=== PATIENT | male | born 1970 | race Caucasian/White ===

== ENCOUNTER 2016-11-24 11:14 | Emergency (ER) | payer OTHER ==
[2016-11-24] MEDS ORDERED: DIPHENHYDRAMINE HCL 50 MG/ML VIAL IV ONE (11:23)
[2016-11-24] MEDS ORDERED: FAMOTIDINE INJ/PF 20 MG/2 ML SDV IV ONE (11:23)
--- NOTE | 2016-11-24 12:23 | ER Document Report ---
ED General - General Stated Complaint: ALLERGIC REACTION Time Seen by Provider: 11/24/16 11:20 Notes: 6-year-old male presents to the emergency room today stating he has difficulty swallowing swelling to his posterior pharynx. He was seen by his PMD who provided him with Solu-Medrol and oral Benadryl and sent him to the emergency room. TRAVEL OUTSIDE OF THE [place] IN LAST 30 DAYS: No - Related Data Allergies/Adverse Reactions: No Known Allergies Allergy (Unverified 11/24/16 11:42) Past Medical History - Social History Smoking Status: Current Every Day Smoker Chew tobacco use (# tins/day): No Frequency of alcohol use: None Drug Abuse: None Family History: None - Past Medical History Cardiac Medical History: Reports: Hx Hypertension Endocrine Medical History: Reports: Hx Diabetes Mellitus Type 2 Past Surgical History: Reports: Hx Abdominal Surgery, Hx Orthopedic Surgery Review of Systems - Review of Systems Constitutional: No symptoms reported EENT: No symptoms reported Cardiovascular: No symptoms reported Respiratory: No symptoms reported Gastrointestinal: No symptoms reported Genitourinary: No symptoms reported Male Genitourinary: No symptoms reported Musculoskeletal: No symptoms reported Skin: No symptoms reported Hematologic/Lymphatic: No symptoms reported Neurological/Psychological: No symptoms reported Physical Exam - Vital signs Vitals: Temp Resp BP Pulse Ox 99.2 F 16 144/65 H 96 11/24/16 11:17 11/24/16 11:17 11/24/16 11:17 11/24/16 11:17 Interpretation: Normal - General General appearance: Appears well, Alert - HEENT Head: Normocephalic, Atraumatic Eyes: Normal Pupils: PERRL Pharynx: Uvular edema - Respiratory Respiratory status: No respiratory distress Chest status: Nontender Breath sounds: Normal Chest palpation: Normal - Cardiovascular Rhythm: Regular Heart sounds: Normal auscultation Murmur: No - Abdominal Inspection: Normal Distension: No distension Bowel sounds: Normal Tenderness: Nontender Organomegaly: No organomegaly - Back Back: Normal, Nontender - Extremities General upper extremity: Normal inspection, Nontender, Normal color, Normal ROM , Normal temperature General lower extremity: Normal inspection, Nontender, Normal color, Normal ROM , Normal temperature, Normal weight bearing. No: Chris's sign - Neurological Neuro grossly intact: Yes Cognition: Normal Orientation: AAOx4 [place] Coma Scale Eye Opening: Spontaneous Sophie Coma Scale Verbal: Oriented Sophie Coma Scale Motor: Obeys Commands Sophie Coma Scale Total: 15 Speech: Normal Motor strength normal: LUE, RUE, LLE, RLE Sensory: Normal - Psychological Associated symptoms: Normal affect, Normal mood - Skin Skin Temperature: Warm Skin Moisture: Dry Skin Color: Normal Course - Re-evaluation Re-evalutation: 11/24/16 12:18 Prior to arrival the patient had been provided 125 mg of Solu-Medrol IM and 50 mg of Benadryl p.o. Here in the department we gave him Pepcid as well as IV Benadryl he also received epinephrine prior to arrival. Patient was already starting to feel better he did look like he had slight edema to the uvula upon my evaluation initially. Which is subsequently resolved patient takes p.o. challenge is in the room with no discomfort states it is still slightly sore but is completely patent he feels much better he was monitored for approximately an hour and a half. Patient was advised to refrain from taking lisinopril. He was provided with a prescription for prednisone Benadryl and Pepcid for 5 days. Subsequently he mentioned that he was experiencing some muscle spasm in the left lateral aspect of his neck with no injury no midline step-off no crepitus. Possible upon movement with palpable spasm to that area. - Vital Signs Vital signs: Temp Pulse Resp BP Pulse Ox 99.2 F 24 H 123/58 L 94 11/24/16 11:17 11/24/16 12:01 11/24/16 12:01 11/24/16 12:01 Discharge - Discharge Clinical Impression: Torticollis, acute Acute allergic reaction Qualifiers: Encounter type: initial encounter Qualified Code(s): T78.40XA - Allergy, unspecified, initial encounter Condition: Good Disposition: HOME, SELF-CARE Additional Instructions: Acute Allergic Reaction Your symptoms are due to an allergic reaction. Allergy can cause hives, swelling of the hands, feet, and face, hoarseness, and difficulty swallowing or breathing. It may be due to exposure to medication, animal dander, foods, infection, or insect bites. Medication is a common cause, even when prior use of this same medication caused no problems. Acute treatment may include adrenalin and antihistamines. Usually, the specific allergic agent can't be identified unless repeated episodes occur. Home treatment includes the following: (1) Stop any suspicious medications. This will be discussed with you. (2) Oral antihistamines for the next four to five days. Example, diphenhydramine (Benadryl) every four hours. (3) You may also use cimetidine (Tagamet), ranitidine (Zantac), or famotidine (Pepcid) every four hours if diphenhydramine is not controlling itching and hives. (4) Avoid aspirin until the hives completely disappear. (5) Avoid hot bahs or showers until the hives are completely gone. Call the doctor if faintness, difficulty swallowing, tightness in the chest, or wheezing occurs.Torticollis You have torticollis, often called "wry neck." This is due to spasm of neck muscles -- locking the neck into a crooked position. Many different problems can lead to torticollis, such as a minor injury, sleeping with tension on the neck, or inflammation in the glands of the neck. Torticollis is usually treated with heat to relax the neck muscles, but the physician may recommend cold packs if a minor injury is suspected as the cause. Muscle relaxing and antiinflammatory medicine are often prescribed. You may need a neck collar to support your head. Improvement is usually rapid. Usually, the neck can be moved fully within two days, although some pain may persist for a few weeks. Call the doctor at once if you worsen, or if you develop high fever, severe headache, numbness or weakness, or other alarming symptoms. Follow up with PMD in 2-3 days. Do not take lisinopril. Speak with PMD for new hypertension management medication. Follow-up with private doctor in 1 to 2 days for final radiology readings please return to the emergency room for any change worsening condition. Follow up with private M.D. for all other routine health care needs. Prescriptions: Tramadol HCl [Ultram 50 mg Tablet] 50 mg PO Q4HP PRN #60 tab PRN Reason: Diphenhydramine HCl [Benadryl 25 mg Capsule] 25 mg PO Q6 PRN #25 capsule PRN Reason: Famotidine [Pepcid 20 mg Tablet] 20 mg PO DAILY #10 tablet Methocarbamol [Robaxin 750 mg Tablet] 750 mg PO Q4 #40 tablet Prednisone [Deltasone 20 mg Tablet] 3 tab PO DAILY 5 Days
[2016-11-24] MEDS ORDERED: HYDROCODONE/ACETAMINOPHEN 5-325 MG TABLET PO ONE (12:29)
[2016-11-24 12:50] VITALS: BP 119/52
== END 2016-11-24 12:47 | disposition home or self-care (01) ==
LOC: ER 11:14
DX: T78.40XA Allergy, unspecified, initial encounter (principal); R13.10 Dysphagia, unspecified; X58.XXXA Exposure to other specified factors, initial encounter; M43.6 Torticollis; F17.200 Nicotine dependence, unspecified, uncomplicated; I10 Essential (primary) hypertension; E11.9 Type 2 diabetes mellitus without complications
CPT/HCPCS: 99282; 96374; 96375; J1200; S0028

== ENCOUNTER 2017-01-10 20:15 | Emergency (ER) | payer OTHER ==
--- NOTE | 2017-01-10 22:55 | ER Document Report ---
ED ENT - General Chief Complaint: Sore Throat Stated Complaint: SORE THROAT Time Seen by Provider: 01/10/17 22:54 Notes: Patient is a 46-year-old male, past medical history diabetes, presents with 4 days of a sore throat and nasal congestion. He is able to drink and swallow his secretions. He denies fevers, neck stiffness, cough, nausea or vomiting. TRAVEL OUTSIDE OF THE [place] IN LAST 30 DAYS: No - Related Data Allergies/Adverse Reactions: No Known Allergies Allergy (Unverified 11/24/16 11:42) Past Medical History - General Information source: Patient - Social History Smoking Status: Unknown if Ever Smoked Family History: None Patient has suicidal ideation: No Patient has homicidal ideation: No - Past Medical History Cardiac Medical History: Reports: Hx Hypertension Endocrine Medical History: Reports: Hx Diabetes Mellitus Type 2 Renal/ Medical History: Denies: Hx Peritoneal Dialysis Past Surgical History: Reports: Hx Abdominal Surgery, Hx Orthopedic Surgery Review of Systems - Review of Systems Notes: REVIEW OF SYSTEMS: CONSTITUTIONAL: -fevers, -chills EENT: +sore throat, -eye pain, -difficulty swallowing, -nasal congestion CARDIOVASCULAR: -chest pain, -syncope. RESPIRATORY: -cough, -SOB GASTROINTESTINAL: -abdominal pain, - nausea, -vomiting, -diarrhea GENITOURINARY: -dysuria, -hematuria MUSCULOSKELETAL: -back pain, -neck pain SKIN: -rash or skin lesions. HEMATOLOGIC: -easy bruising or bleeding. LYMPHATIC: +swollen, enlarged glands. NEUROLOGICAL: -altered mental status or loss of consciousness, -headache, - neurologic symptoms PSYCHIATRIC: -anxiety, -depression. ALL OTHER SYSTEMS REVIEWED AND NEGATIVE. Physical Exam - Vital signs Vitals: Temp Pulse Resp BP Pulse Ox 99.3 F 97 20 150/91 H 97 01/10/17 20:46 01/10/17 20:46 01/10/17 20:46 01/10/17 20:46 01/10/17 20:46 - Notes Notes: PHYSICAL EXAMINATION: GENERAL: Well-appearing, well-nourished and in no acute distress. HEAD: Atraumatic, normocephalic. EYES: Pupils equal round and reactive to light, extraocular movements intact, sclera anicteric, conjunctiva are normal. ENT: B/L posterior pharynx erythema, no exudates, symmetrical, cobblestoning, nares patent. Moist mucous membranes. NECK: Normal range of motion, supple with anterior cervical lymphadenopathy LUNGS: Breath sounds clear to auscultation bilaterally and equal. No wheezes rales or rhonchi. HEART: Regular rate and rhythm without murmurs ABDOMEN: Soft, nontender, normoactive bowel sounds. No guarding, no rebound. No masses appreciated. EXTREMITIES: Normal range of motion, no pitting or edema. No cyanosis. NEUROLOGICAL: Cranial nerves grossly intact. Normal speech, normal gait. Normal sensory and motor exams. PSYCH: Normal mood, normal affect. SKIN: Warm, Dry, normal turgor, no rashes or lesions noted. Course - Re-evaluation Re-evalutation: Pt has no evidence of [employer], RPA or epiglottitis at this time. His CENTOR score is 1. Rapid strep positive. Will provide Decadron, clindamycin, antihistamines, NSAIDs and nasal steroids with strict return precautions. - Vital Signs Vital signs: Temp Pulse Resp BP Pulse Ox 99.3 F 97 20 150/91 H 97 01/10/17 20:46 01/10/17 20:46 01/10/17 20:46 01/10/17 20:46 01/10/17 20:46 Discharge - Discharge Clinical Impression: Strep pharyngitis Condition: Stable Disposition: HOME, SELF-CARE Additional Instructions: SORE THROAT: Sore throats may be caused by viruses, bacteria, or fungi. Most are due to a virus, and must get better on their own. Bacterial sore throats, particularly those due to "strep," need treatment with antibiotics. If an antibiotic is prescribed, be sure to take the medication for a full 10 days. Failure to take the antibiotic can result in complications such as rheumatic fever. Sometimes, an injection of antibiotics is given instead of pills or liquid. This single "shot" is equal in effectiveness to the oral medication. To relieve symptoms, take acetaminophen for pain. Sip clear liquids frequently, or eat popsicles or ice chips. Anesthetic sprays or lozenges may help. Make sure the air in the room is not too dry. Avoid using decongestants or antihistamines. Call the doctor if there is no improvement in two days, or if you have difficulty breathing, increasing throat pain, high fever, rash, or frequent vomiting. STREP THROAT: Your sore throat is due to the streptococcus germ (strep throat). Strep throat usually makes you feel quite ill with fever and aches, headache, swollen sore throat, and tender bumps under the angles of the jaw. Strep throat requires antibiotic treatment. Although the sore throat may go away by itself, complications such as rheumatic fever, kidney disease, or throat abscess can occur. We usually prescribe antibiotics by mouth. Be sure to take the medicine until it's gone. If you stop early, the strep may come back. If you are vomiting, are severely ill, or can't remember to take pills, we can give you an antibiotic shot. Take acetaminophen or ibuprofen for pain and fever. Sip frequent clear liquids, or use popsicles or ice chips. Anesthetic sprays or lozenges may help. Make sure the air in the room is not too dry. Avoid using decongestants or antihistamines. Call the doctor if there is no improvement in three days, or if you have difficulty breathing, increasing throat pain, high fever, rash, or frequent vomiting. STEROID MEDICATION: You have been given a medicine of the cortisone/steroid class. This medication is used to control inflammation or allergy. It is usually only given for a short period of time, until the acute process subsides. There are usually no side effects from short-term use of cortisone-like medications. Some persons feel an increased sense of well-being and are not sleepy at bedtime. Long-term use of cortisone medications is best avoided, unless required for a severe condition. If your condition does not remit, or relapses after the course of corticosteroid medication, you should consult your physician. FOLLOW-UP CARE: If you have been referred to a physician for follow-up care, call the physician s office for an appointment as you were instructed or within the next two days. If you experience worsening or a significant change in your symptoms, notify the physician immediately or return to the Emergency Department at any time for re-evaluation. Prescriptions: Clindamycin HCl [Cleocin 300 mg Capsule] 300 mg PO TID #29 capsule
[2017-01-10] MEDS ORDERED: DEXAMETHASONE 4 MG TABLET PO ONE (23:13)
[2017-01-10] MEDS ORDERED: IBUPROFEN 600 MG TABLET PO ONE (23:13)
[2017-01-11] MEDS ORDERED: CLINDAMYCIN HCL 150 MG CAPSULE PO ONE
[2017-01-11 00:29] VITALS: BP 144/90
== END 2017-01-11 00:35 | disposition home or self-care (01) ==
LOC: ER 20:15
DX: J02.0 Streptococcal pharyngitis (principal); R09.81 Nasal congestion; E11.9 Type 2 diabetes mellitus without complications; I10 Essential (primary) hypertension
CPT/HCPCS: 87880; 99283